=== PATIENT | male | born 1950 | race Caucasian/White ===

== ENCOUNTER 2018-01-10 06:18 | Day surgery (SDC) | payer MEDICARE ==
[2018-01-10] MEDS ORDERED: Lactated Ringers 1,000 ML IV SCH (07:00)
[2018-01-10] MEDS ORDERED: fentaNYL 100 MCG/2 ML SDV ONE (07:24)
[2018-01-10] MEDS ORDERED: Midazolam 1 MG/ML 2 ML SDV ONE (07:24)
[2018-01-10] MEDS ORDERED: Propofol 200 MG/20 ML SDV ONE (07:24)
--- NOTE | 2018-01-10 14:21 | OR ---
DATE OF PROCEDURE: 01/10/2018 PREOPERATIVE DIAGNOSES: 1. Dysphagia. 2. History of adenomatous colon polyps. POSTOPERATIVE DIAGNOSES: 1. Gastritis. 2. Dysphagia, etiology unknown. 3. Unremarkable colonoscopy. 4. History of adenomatous colon polyps. PROCEDURES: 1. Esophagogastroduodenoscopy with antral biopsies for CLOtest and for pathology to look for Helicobacter pylori. 2. Colonoscopy to the cecum. SURGEON: Odell Arreaga MD. ANESTHESIA: IV anesthesia with monitored anesthesia care. INDICATION: This 67-year-old white male is referred for upper and lower endoscopy. Indication for upper endoscopy is dysphagia. Indication for colonoscopy is history of adenomatous colon polyps. I counseled him for upper and lower endoscopy with possible biopsy and/or polypectomy including risks, alternatives, and gave his informed consent to proceed. DESCRIPTION OF PROCEDURE: The patient was placed in the left lateral decubitus position. IV anesthesia was administered by the Anesthesia Service. Time-out was held. The flexible video Olympus upper endoscope was passed through his mouth, down his esophagus, and into his stomach. The scope was easily passed through the pylorus, into the duodenum reaching its third portion. The scope was then slowly withdrawn examining the mucosa throughout. The duodenal mucosa appeared unremarkable. The scope was brought back through the pylorus into the antrum. There was punctate areas of erythema consistent with gastritis. We obtained antral biopsies for CLOtest and for pathology to look for Helicobacter pylori. The scope was retroflexed and the most proximal stomach appeared unremarkable. The scope was straightened and brought up to the GE junction. There was a very small hiatal hernia. The GE junction was patent, no strictures or evidence of any obstructing lesions. The scope was then brought up through the unremarkable appearing esophagus and was removed. Next, a rectal exam was performed which was unremarkable. The flexible video Olympus colonoscope was introduced through his anus, up his rectum, and out his colon all the way to the cecum. Once the cecum was reached, the scope was slowly withdrawn examining the mucosa throughout. No mucosal abnormalities were noted. The scope was retroflexed in the rectum with the distal rectum appearing unremarkable. The scope was straightened and removed. He tolerated the procedure well. Odell Arreaga MD /[id number]
== END 2018-01-10 09:35 | disposition home or self-care (01) ==
LOC: JP.SDS 06:18
PROVIDERS: ATTEND Surgery
DX: Z12.11 Encounter for screening for malignant neoplasm of colon (principal); R13.10 Dysphagia, unspecified; K29.70 Gastritis, unspecified, without bleeding; K21.9 Gastro-esophageal reflux disease without esophagitis; I10 Essential (primary) hypertension; E78.5 Hyperlipidemia, unspecified; Z86.010 Personal history of colon polyps
CPT/HCPCS: 43239; 87081; G0121; J2250; J2704; J3010; J7120; 88305

== ENCOUNTER 2022-06-05 18:02 | Emergency (ER) | payer MEDICARE ==
[2022-06-05] MEDS ORDERED: Ibuprofen 600 MG Tab PO ONE (19:49)
== END 2022-06-05 20:09 | disposition home or self-care (01) ==
LOC: JP.ED 18:02
DX: S40.012A Contusion of left shoulder, initial encounter (principal); S30.0XXA Contusion of lower back and pelvis, initial encounter; I10 Essential (primary) hypertension; M19.90 Unspecified osteoarthritis, unspecified site; Z88.0 Allergy status to penicillin; Z79.82 Long term (current) use of aspirin; Z79.899 Other long term (current) drug therapy; W10.9XXA Fall (on) (from) unspecified stairs and steps, initial encounter
CPT/HCPCS: 71046; 72100; 73030-LT; 73502-LT; 99283; A9270-GY

== ENCOUNTER 2022-10-02 07:47 | Day surgery (SDC) | payer MEDICARE ==
[2022-10-02] MEDS ORDERED: Midazolam 1 MG/ML 2 ML SDV ONE (08:11)
[2022-10-02] MEDS ORDERED: Propofol 200 MG/20 ML SDV ONE (08:11)
[2022-10-02] MEDS ORDERED: fentaNYL 50 MCG/ML SDV ONE (08:11)
[2022-10-02] MEDS ORDERED: Lactated Ringers 1,000 ML IV SCH (08:30)
== END 2022-10-02 12:18 | disposition home or self-care (01) ==
LOC: JP.SDS 07:47
PROVIDERS: ATTEND Family Medicine
DX: Z12.11 Encounter for screening for malignant neoplasm of colon (principal); D12.2 Benign neoplasm of ascending colon; D12.3 Benign neoplasm of transverse colon; D12.4 Benign neoplasm of descending colon; D12.5 Benign neoplasm of sigmoid colon; J30.1 Allergic rhinitis due to pollen; E78.5 Hyperlipidemia, unspecified; I10 Essential (primary) hypertension; Z88.0 Allergy status to penicillin
CPT/HCPCS: 88305; J2250; J2704; J3010; J7120

== ENCOUNTER 2023-01-15 08:12 | Emergency (ER) | payer MEDICARE ==
[2023-01-15] MEDS ORDERED: Sodium Chloride 0.9% 10 ML Syringe FLUSH PRN ×2 (08:29→09:21)
[2023-01-15 08:50] LABS: BASOPHILS ABSOLUTE AUTO 0.04 K/uL (0.00-0.10); BASOPHILS PERCENT AUTO 0.7 % (0.1-1.3); EOSINOPHILS ABSOLUTE AUTO 0.32 K/uL (0.00-0.40); EOSINOPHILS PERCENT AUTO 5.6 % (0.0-5.4); HEMATOCRIT 44.6 % (38.4-49.7); HEMOGLOBIN 15.4 g/dL (12.9-16.9); IMMATURE GRAN PERCENT AUTO 0.2 % (0.0-0.7); LYMPHOCYTES ABSOLUTE AUTO 1.52 K/uL (0.8-3.3); LYMPHOCYTES PERCENT AUTO 26.4 % (11.4-47.7); MEAN CORPUSCULAR HEMOGLOBIN 30.3 pg (31.6-35.5); MEAN CORPUSCULAR HGB CONC 34.5 g/dL (31.6-35.5); MEAN CORPUSCULAR VOLUME 87.8 fL (81.4-99.0); MONOCYTES ABSOLUTE AUTO 0.55 K/uL (0.20-0.90); MONOCYTES PERCENT AUTO 9.5 % (3.3-12.6); NEUTROPHILS ABSOLUTE AUTO 3.32 K/uL (1.0-7.6); NEUTROPHILS PERCENT AUTO 57.6 % (40.0-78.1); PLATELET COUNT,PLT 167 K/uL (130-375); RED BLOOD CELL COUNT 5.08 M/uL (4.14-5.76); WHITE BLOOD CELL COUNT,WBC 5.8 K/uL (3.2-11.0)
[2023-01-15 08:54] LABS: IMMATURE GRAN ABSOLUTE AUTO 0.01 K/uL (0.00-0.23)
[2023-01-15 09:11] LABS: A/G RATIO 1.1 (1.2-2.2); ALANINE AMINOTRANSFERASE,ALT 58 U/L (12-78); ALBUMIN 3.6 g/dL (3.4-5.0); ALKALINE PHOSPHATASE 76 U/L (46-116); ANION GAP 5.4 mmol/L (5.0-14.0); ASPARTATE AMNIOTRANSFERASE,AST 37 U/L (15-37); BILIRUBIN TOTAL 0.8 mg/dL (0.2-1.0); BLOOD UREA NITROGEN,BUN 17 mg/dL (7-18); C-REACTIVE PROTEIN 0.15 mg/dL (0.0-0.3); CALCIUM 8.6 mg/dL (8.5-10.1); CARBON DIOXIDE,CO2 31 mmol/L (21-32); CHLORIDE,CL 105 mmol/L (100-108); EST CRCL DRUG DOSING (CG) 65.79 mL/min; ESTIMATED GFR 79 mL/min (>60); GLUCOSE RANDOM 95 mg/dL (74-106); POTASSIUM,K 4.3 mmol/L (3.6-5.2); PROTEIN TOTAL,TP 6.9 g/dL (6.4-8.2); SODIUM,NA 141 mmol/L (140-148)
[2023-01-15 09:16] LABS: LACTIC ACID 0.8 mmol/L (0.4-2.0)
[2023-01-15] MEDS ORDERED: Iopamidol 612 MG/ML 100 ML Bottle IV PRN (09:21)
[2023-01-15] MEDS ORDERED: Sodium Chloride 0.9% 50 ML IV ONE (09:21)
[2023-01-15 10:38] LABS: APPEARANCE,URINE CLEAR (CLEAR); BILIRUBIN,URINE NEGATIVE (NEGATIVE); COLOR,URINE YELLOW (YELLOW); GLUCOSE,URINE NEGATIVE (NEGATIVE); KETONES,URINE NEGATIVE (NEGATIVE); LEUKOCYTE ESTERASE,URINE NEGATIVE (NEGATIVE); NITRITE,URINE NEGATIVE (NEGATIVE); OCCULT BLOOD,URINE NEGATIVE (NEGATIVE); PROTEIN,URINE NEGATIVE (NEGATIVE); UROBILINOGEN,URINE 0.2 EU/dL (0.2-1.0)
[2023-01-15 10:46] LABS: AMORPHOUS SEDIMENT,URINE RARE; BACTERIA,URINE NOT SEEN; EPITHELIAL CELLS,URINE NOT SEEN; MUCUS,URINE NOT SEEN; RBC,URINE NOT SEEN (0-5); WBC,URINE NOT SEEN (0-5)
== END 2023-01-15 11:10 | disposition home or self-care (01) ==
LOC: JP.ED 08:12
DX: S39.011A Strain of muscle, fascia and tendon of abdomen, initial encounter (principal); I10 Essential (primary) hypertension; M19.90 Unspecified osteoarthritis, unspecified site; Z88.0 Allergy status to penicillin; Z91.048 Other nonmedicinal substance allergy status; Z79.82 Long term (current) use of aspirin; Z79.899 Other long term (current) drug therapy; Z86.16 Personal history of COVID-19; Z20.822 Contact with and (suspected) exposure to COVID-19
CPT/HCPCS: 36415; 74177; 80053; 81001; 83605; 85025; 86140; 99284; J3490; Q9967; U0002

== ENCOUNTER 2023-09-09 07:45 | Day surgery (SDC) | payer MEDICARE ==
[2023-09-09 08:05] LABS: HEMATOCRIT 46.6 % (38.4-49.7); HEMOGLOBIN 16.5 g/dL (12.9-16.9); MEAN CORPUSCULAR HEMOGLOBIN 30.8 pg (31.6-35.5); MEAN CORPUSCULAR HGB CONC 35.4 g/dL (31.6-35.5); MEAN CORPUSCULAR VOLUME 86.9 fL (81.4-99.0); RED BLOOD CELL COUNT 5.36 M/uL (4.14-5.76); WHITE BLOOD CELL COUNT,WBC 6.3 K/uL (3.2-11.0)
[2023-09-09] MEDS: Acetaminophen 500 MG Tab PO ONE (08:09)
[2023-09-09] MEDS ORDERED: Rocuronium 50 MG/5 ML Vial ONE (08:16)
[2023-09-09] MEDS ORDERED: Ondansetron 4 MG/2 ML SDV ONE (08:16)
[2023-09-09] MEDS ORDERED: Propofol 200 MG/20 ML SDV ONE (08:16)
[2023-09-09] MEDS ORDERED: Dexamethasone 4 MG/ML SDV ONE (08:16)
[2023-09-09] MEDS ORDERED: Neostigmine Methylsulfate 10 MG/10 ML MDV ONE (08:16)
[2023-09-09] MEDS ORDERED: Succinylcholine 200 MG/10 ML MDV ONE (08:16)
[2023-09-09] MEDS ORDERED: Glycopyrrolate 0.2 MG/ML 5 ML MDV ONE (08:16)
[2023-09-09] MEDS ORDERED: fentaNYL 250 MCG/5 ML SDV ONE (08:18)
[2023-09-09 08:22] LABS: PROTHROMBIN TIME 10.3 sec (9.2-10.6)
[2023-09-09 08:27] LABS: A/G RATIO 1.2 (1.2-2.2); ALANINE AMINOTRANSFERASE,ALT 86 U/L (12-78); ALBUMIN 3.8 g/dL (3.4-5.0); ALKALINE PHOSPHATASE 65 U/L (46-116); ANION GAP 7.1 mmol/L (5.0-14.0); ASPARTATE AMNIOTRANSFERASE,AST 46 U/L (15-37); BILIRUBIN TOTAL 0.9 mg/dL (0.2-1.0); BLOOD UREA NITROGEN,BUN 11 mg/dL (7-18); CALCIUM 8.5 mg/dL (8.5-10.1); CARBON DIOXIDE,CO2 28 mmol/L (21-32); CHLORIDE,CL 105 mmol/L (100-108); CREATININE 1.1 mg/dL (0.8-1.3); EST CRCL DRUG DOSING (CG) 58.92 mL/min; ESTIMATED GFR 70 mL/min (>60); GLUCOSE RANDOM 109 mg/dL (74-106); POTASSIUM,K 4.2 mmol/L (3.6-5.2); PROTEIN TOTAL,TP 6.9 g/dL (6.4-8.2); SODIUM,NA 140 mmol/L (140-148)
[2023-09-09] MEDS: Lactated Ringers 1,000 ML IV SCH (08:50)
[2023-09-09] MEDS: Clindamycin in 0.9 % Sod Chlor 900 MG in Premix Bag 1 BAG IV ONE (09:15)
[2023-09-09] MEDS: Bupivacaine 0.5%/EPINEPHrine 1:200,000 50 ML MDV ONE (09:50)
[2023-09-09] MEDS ORDERED: fentaNYL 100 MCG/2 ML SDV ONE (09:51)
[2023-09-09] MEDS ORDERED: Sugammadex Sodium 200 MG/2 ML VIAL IV ONE (09:58)
[2023-09-09] MEDS ORDERED: Acetaminophen/HYDROcodone 325-5 MG Tab PO PRN (10:54)
== END 2023-09-09 12:06 | disposition home or self-care (01) ==
LOC: JP.SDS 07:45
PROVIDERS: ATTEND Student in an Organized Health Care Education/Training Program
DX: K43.9 Ventral hernia without obstruction or gangrene (principal); K42.9 Umbilical hernia without obstruction or gangrene; I10 Essential (primary) hypertension; E78.5 Hyperlipidemia, unspecified; Z79.899 Other long term (current) drug therapy; Z88.0 Allergy status to penicillin
CPT/HCPCS: 36415; 49591; 80053; 85027; 85610; 93005; A9270; J0330; J0736; J1100; J2405; J2704; J2710; J3010; J3490; J7120

== ENCOUNTER 2023-09-29 08:00 | Emergency (ER) | payer MEDICARE ==
[2023-09-29] MEDS: Proparacaine 0.5% Ophth Soln 15 ML Bottle EYEBOTH STA (08:34)
== END 2023-09-29 08:55 | disposition home or self-care (01) ==
LOC: JP.ED 08:00
DX: S05.8X2A Other injuries of left eye and orbit, initial encounter (principal); I10 Essential (primary) hypertension; K21.9 Gastro-esophageal reflux disease without esophagitis; E78.00 Pure hypercholesterolemia, unspecified; Z88.0 Allergy status to penicillin; Z91.048 Other nonmedicinal substance allergy status; Z79.899 Other long term (current) drug therapy; Z86.16 Personal history of COVID-19; X58.XXXA Exposure to other specified factors, initial encounter
CPT/HCPCS: 99283; A9270